=== PATIENT | male | born 1990 | race Caucasian/White ===

== ENCOUNTER 2021-12-06 08:27 | Outpatient (CLI) | payer OTHER, SELFPAY ==
[2021-12-06 09:28] LABS: SARS-CoV-2 Ag Negative (Negative)
== END 2021-12-06 08:28 | disposition home or self-care (01) ==
LOC: CHSLAB 08:29
PROVIDERS: PCP Internal Medicine; Visit Provider Internal Medicine
DX: R68.89 Other general symptoms and signs (principal); Z20.822 Contact with and (suspected) exposure to COVID-19
CPT/HCPCS: 87426; C9803